=== PATIENT | male | born 1990 ===

== ENCOUNTER 2016-12-06 18:41 | Emergency (ER) ==
[~2016-12-06] VITALS: Ht 180.3 cm; Wt 74.8 kg
[2016-12-06 18:42] VITALS: BP 133/76
[2016-12-06] MEDS ORDERED: ADVA115A INH (18:49)
[2016-12-06] MEDS ORDERED: PROA1AER INH (18:49)
== END 2016-12-06 19:52 | disposition left against medical advice (07) ==
LOC: M ED 19:47
DX: N48.89 Other specified disorders of penis (principal); Z53.21 Procedure and treatment not carried out due to patient leaving prior to being seen by health care provider